=== PATIENT | female | born 1980 | race Hispanic/Latino ===

== ENCOUNTER 2018-05-05 14:15 | Emergency (ER) | payer MEDICAID ==
[2018-05-05 14:53] VITALS: RESP 18
--- NOTE | 2018-05-05 14:58 | ED PDOC ---
Arrival/HPI - General Chief Complaint: High Blood Pressure Time Seen by Provider: 05/05/18 14:16 Historian: Patient - History of Present Illness Narrative History of Present Illness (Text): 05/05/18 14:58 38yo female with pmhx of migraine headache who present with complaint of elevated BP/ states her BP was 150/100 yesterday while at her Neurologist. states her migraine resolved, but her BP is still elevated. Denies history of BP. states she have a physically challenged child and deals with that stress and other stressful events. States she have a PMD, but have not seen the Doctor for her BP. Denies headache, chest pain, SOB, focal weakness, slurred speech, nausea, vomiting, diaphoresis, any other complaint. Past Medical History - Provider Review Nursing Documentation Reviewed: Yes - Infectious Disease Hx of Infectious Diseases: None - Cardiac Hx Cardiac Disorders: No - Pulmonary Hx Respiratory Disorders: No - Neurological Hx Neurological Disorder: Yes Hx Migraine: Yes - HEENT Hx HEENT Disorder: No - Renal Hx Renal Disorder: No - Endocrine/Metabolic Hx Endocrine Disorders: No - Hematological/Oncological Hx Blood Disorders: No - Integumentary Hx Dermatological Disorder: No - Musculoskeletal/Rheumatological Hx Musculoskeletal Disorders: No - Gastrointestinal Hx Gastrointestinal Disorders: No - Genitourinary/Gynecological Hx Genitourinary Disorders: Yes Other/Comment: PCOS - Psychiatric Hx Psychophysiologic Disorder: No Hx Substance Use: No - Surgical History Hx Section: Yes Family/Social History - Physician Review Nursing Documentation Reviewed: Yes Family/Social History: Unknown Family HX Smoking Status: Current Some Days Smoker Hx Alcohol Use: Yes Frequency of alcohol use: Socially Hx Substance Use: No Allergies/Home Meds Allergies/Adverse Reactions: Allergies Penicillins Adverse Reaction (Verified 05/05/18 14:18) NAUSEA Home Medications: Home Meds Medication Instructions Recorded Confirmed Amitriptyline [Elavil] 10 mg PO HS 05/05/18 05/05/18 Chlorzoxazone 500 mg PO HS 05/05/18 05/05/18 Cyclobenzaprine [Flexeril] 5 mg PO PRN PRN 05/05/18 05/05/18 Erenumab-Aooe [Aimovig 70 mg IM Q30D 05/05/18 05/05/18 Autoinjector] Naratriptan HCl [Amerge] 2.5 mg PO PRN PRN 05/05/18 05/05/18 Norethindrone [Yee] 1 tab PO DAILY 05/05/18 05/05/18 Prochlorperazine [Compazine] 10 mg PO PRN PRN 05/05/18 05/05/18 tiZANidine [Zanaflex] 2 mg PO HS 05/05/18 05/05/18 Review of Systems - Physician Review All systems were reviewed & negative as marked: Yes - Review of Systems Constitutional: Other (Elevated BP) Eyes: Normal ENT: Normal Respiratory: Normal Cardiovascular: Normal Gastrointestinal: Normal Genitourinary Female: Normal Musculoskeletal: Normal Skin: Normal Neurological: Normal Endocrine: Normal Hemo/Lymphatic: Normal Psychiatric: Normal Physical Exam Vital Signs Reviewed: Yes Vital Signs Temp Pulse Resp BP Pulse Ox 05/05/18 14:52 98.1 F 101 H 18 149/106 H 100 05/05/18 14:23 98.1 F 107 H 16 157/111 H 98 Temperature: Afebrile Blood Pressure: Hypertensive Pulse: Regular Respiratory Rate: Normal Appearance: Positive for: Well-Appearing, Non-Toxic, Comfortable Pain Distress: None Mental Status: Positive for: Alert and Oriented X 3 - Systems Exam Head: Present: Atraumatic, Normocephalic Pupils: Present: PERRL Extroacular Muscles: Present: EOMI Conjunctiva: Present: Normal Mouth: Present: Moist Mucous Membranes Neck: Present: Normal Range of Motion Respiratory/Chest: Present: Clear to Auscultation, Good Air Exchange. No: Respiratory Distress, Accessory Muscle Use Cardiovascular: Present: Regular Rate and Rhythm, Normal S1, S2. No: Murmurs Abdomen: No: Tenderness, Distention, Peritoneal Signs Back: Present: Normal Inspection Upper Extremity: Present: Normal Inspection. No: Cyanosis, Edema Lower Extremity: Present: Normal Inspection. No: Edema Neurological: Present: GCS=15, CN II-XII Intact, Speech Normal Skin: Present: Warm, Dry, Normal Color. No: Rashes Psychiatric: Present: Alert, Oriented x 3, Normal Insight, Normal Concentration Medical Decision Making ED Course and Treatment: 05/05/18 17:42 38yo female who present with stated history. She was hemodynamically stable and neurologically intact. She denied any somatic complaint in ED EKG NSR @ 65bpm - N-stemi She was given Lisinopril 5mg and observed in ED. On re evaluation her BP was still elevated and another Lisinopril was ordered.. PT 's BP improved on re evaluation. She noted that she have appointment with her PMD tomorrow morning at 0800am and was advised to f/u with the PMD . Disposition/Present on Arrival - Present on Arrival Any Indicators Present on Arrival: No History of DVT/PE: No History of Uncontrolled Diabetes: No Urinary Catheter: No History of Decub. Ulcer: No History Surgical Site Infection Following: None - Disposition Have Diagnosis and Disposition been Completed?: Yes Diagnosis: Hypertension Disposition: HOME/ ROUTINE Disposition Time: 18:50 Patient Plan: Discharge Patient Problems: Current Active Problems Problem Status Onset Hypertension Acute Condition: FAIR Discharge Instructions (ExitCare): High Blood Pressure in Adults Additional Instructions: Follow up with your Doctor Return to ED for any new or worsening symptoms Prescriptions: Lisinopril [Zestril] 5 mg PO DAILY #10 tab Referrals: Angelita Birmingham MD [Medical Doctor] - Follow up with primary Forms: [employer] ([place]ian)
[2018-05-05 18:07] VITALS: BP 160/80; PULSE 97; TEMP 98; O2SAT 96
--- NOTE | 2018-05-05 23:22 | CARD ---
APPROVED REPORT Date of service: 05/05/2018 EKG Measurement Heart [id number] <Conclusion> Normal sinus rhythm Nonspecific T wave abnormality Abnormal ECG
== END 2018-05-05 19:07 | disposition home or self-care (01) ==
LOC: ED 14:15
DX: I10 Essential (primary) hypertension (principal)

== ENCOUNTER 2018-05-06 07:05 | Emergency (ER) | payer MEDICAID ==
[2018-05-06 07:11] VITALS: BMI 24.0
[2018-05-06 07:19] VITALS: RESP 18
[2018-05-06] MEDS ORDERED: Sodium Chloride 0.9% 500 ML IV STA (07:28)
--- NOTE | 2018-05-06 07:30 | ED PDOC ---
Arrival/HPI - General Chief Complaint: Headache Time Seen by Provider: 05/06/18 07:07 Historian: Patient - History of Present Illness Narrative History of Present Illness (Text): 05/06/18 07:29 38 year old female, whose past medical history includes migraine and PCOS, presents to the emergency department complaining of posterior headache, since last night. Patient states this symptom is similar to her previous migraines and reports associated nausea, vomiting, photophobia, and generalized numbness and tingling throughout her body. She notes she was here in the hospital last night for high blood pressure and the migraine started when she left. of note, the patient test from last night was negative. Patient states she is an occasional drinker and smoker. She denies drug use, focal weakness, fevers, chills, dizziness, chest pain, shortness of breath, dyspnea on exertion, cough, abdominal pain, diarrhea, back pain, neck pain, or any other complaint. Time/Duration: 24 hours Symptom Onset: Gradual Symptom Course: Unchanged Activities at Onset: Light Context: Home Past Medical History - Provider Review Nursing Documentation Reviewed: Yes - Infectious Disease Hx of Infectious Diseases: None - Cardiac Hx Cardiac Disorders: No - Pulmonary Hx Respiratory Disorders: No - Neurological Hx Neurological Disorder: Yes Hx Migraine: Yes - HEENT Hx HEENT Disorder: No - Renal Hx Renal Disorder: No - Endocrine/Metabolic Hx Endocrine Disorders: No - Hematological/Oncological Hx Blood Disorders: No - Integumentary Hx Dermatological Disorder: No - Musculoskeletal/Rheumatological Hx Musculoskeletal Disorders: No - Gastrointestinal Hx Gastrointestinal Disorders: No - Genitourinary/Gynecological Hx Genitourinary Disorders: Yes Other/Comment: PCOS - Psychiatric Hx Psychophysiologic Disorder: No Hx Substance Use: No - Surgical History Hx Section: Yes - Anesthesia Hx Anesthesia Reactions: No Hx Malignant Hyperthermia: No Family/Social History - Physician Review Nursing Documentation Reviewed: Yes Family/Social History: No Known Family HX Smoking Status: Current Some Days Smoker Hx Alcohol Use: Yes Frequency of alcohol use: Socially Hx Substance Use: No Allergies/Home Meds Allergies/Adverse Reactions: Allergies Penicillins Adverse Reaction (Verified 05/05/18 14:18) NAUSEA Home Medications: Home Meds Medication Instructions Recorded Confirmed Amitriptyline [Elavil] 10 mg PO HS 05/05/18 05/06/18 Erenumab-Aooe [Aimovig 70 mg IM Q30D 05/05/18 05/06/18 Autoinjector] Naratriptan HCl [Amerge] 2.5 mg PO PRN PRN 05/05/18 05/06/18 Norethindrone [Yee] 1 tab PO DAILY 05/05/18 05/06/18 Prochlorperazine [Compazine] 10 mg PO PRN PRN 05/05/18 05/06/18 tiZANidine [Zanaflex] 2 mg PO HS 05/05/18 05/06/18 Review of Systems - Physician Review All systems were reviewed & negative as marked: Yes - Review of Systems Constitutional: absent: Fatigue, Fevers Respiratory: absent: SOB, Cough Cardiovascular: absent: Chest Pain, Palpitations, Syncope Gastrointestinal: Nausea, Vomiting. absent: Abdominal Pain, Diarrhea Genitourinary Female: absent: Dysuria Musculoskeletal: absent: Back Pain, Neck Pain Neurological: Headache. absent: Dizziness, Focal Weakness, Gait Changes Physical Exam Vital Signs Reviewed: Yes Vital Signs Temp Pulse Resp BP Pulse Ox 05/06/18 07:06 98.2 F 93 H 18 162/100 H 94 L Temperature: Afebrile Blood Pressure: Hypertensive Pulse: Regular Respiratory Rate: Normal Appearance: Positive for: Well-Appearing, Non-Toxic Pain Distress: Severe Mental Status: Positive for: Alert and Oriented X 3 - Systems Exam Head: Present: Atraumatic, Normocephalic Pupils: Present: PERRL Extroacular Muscles: Present: EOMI Conjunctiva: Present: Normal Ears: Present: NORMAL TM, Normal Canal. No: Erythema, TM Bulging Mouth: Present: Moist Mucous Membranes Pharnyx: No: ERYTHEMA, EXUDATE, TONSILS ENLARGED Neck: Present: Normal Range of Motion Respiratory/Chest: Present: Clear to Auscultation, Good Air Exchange. No: Respiratory Distress, Accessory Muscle Use Cardiovascular: Present: Regular Rate and Rhythm, Normal S1, S2. No: Murmurs Abdomen: Present: Other (retching and vomiting on exam ). No: Tenderness, Distention, Peritoneal Signs, Rebound, Guarding Back: Present: Normal Inspection Upper Extremity: Present: Normal Inspection. No: Cyanosis, Edema Lower Extremity: Present: Normal Inspection. No: Edema Neurological: Present: GCS=15, CN II-XII Intact, Speech Normal, Motor Func Grossly Intact Skin: Present: Warm, Dry, Normal Color. No: Rashes Psychiatric: Present: Alert, Oriented x 3, Normal Insight, Normal Concentration Medical Decision Making ED Course and Treatment: 05/06/18 07:29 Impression: 38 year old female who presents to the emergency department complaining of a migraine. Plan: -- Head CT w/o contrast -- EKG -- Labs -- Apresoline -- IV fluids -- Toradol -- Zofran -- Reassess and disposition Prior Visits: Notes and results from previous visits were reviewed. Progress Notes: 05/06/18 08:01 EKG shows sinus tachycardia rate approximately [address] or T wave changes. 05/06/18 08:56 CT scan of the head as read by the radiologist shows no acute findings. 05/06/18 09:06 Little improvement after Toradol and Zofran and IV fluids. Will add Reglan and Imitrex. 05/06/18 10:08 Markedly improved post Reglan and Imitrex. Patient is up walking to the bathroom. She wants to go home to her son. Discharged home accompanied by her aunt. Follow-up with PMD. Follow-up in ER as needed. - Lab Interpretations I have reviewed the lab results: Yes - RAD Interpretation Narrative RAD Interpretations (Text): 05/06/18 08:[address] w/o contrast reviewed by radiologist, shows: IMPRESSION: No acute intracranial abnormality. Artificial Log Machine Operator: Radiologist - EKG Interpretation Interpreted by ED Physician: Yes Type: 12 lead EKG - Scribe Statement The provider has reviewed the documentation as recorded by the Sybil Medrano Provider Scribe Attestation: All medical record entries made by the Sybil were at my direction and personally dictated by me. I have reviewed the chart and agree that the record accurately reflects my personal performance of the history, physical exam, medical decision making, and the department course for this patient. I have also personally directed, reviewed, and agree with the discharge instructions and disposition. Disposition/Present on Arrival - Present on Arrival Any Indicators Present on Arrival: No History of DVT/PE: No History of Uncontrolled Diabetes: No Urinary Catheter: No History of Decub. Ulcer: No History Surgical Site Infection Following: None - Disposition Have Diagnosis and Disposition been Completed?: Yes Diagnosis: Migraine, Hypokalemia, Nausea & vomiting, Hypertension Disposition: HOME/ ROUTINE Disposition Time: 10:11 Patient Plan: Discharge Condition: IMPROVED Discharge Instructions (ExitCare): High Blood Pressure in Adults, Headache, Adult, Hypokalemia (DC), Migraine Headache (DC) Prescriptions: Ondansetron ODT [Zofran ODT] 4 mg PO Q6 #20 odt Referrals: Cyndie Godoy MD [Primary Care Provider] - Follow up with primary Forms: [employer] ([place]se)
[2018-05-06 07:57] LABS: BASO # 0.02 K/mm3 (0.0-2.0); BASO % 0.3 % (0.0-3.0); EOS # 0.1 (0.0-0.7); HEMOGLOBIN 13.1 g/dL (12.0-16.0); LYMPH # 2.1 (1.2-3.4); LYMPH % 30.6 % (22.0-35.0); MEAN CELL VOLUME 92.5 fl (80.0-105.0); MEAN CORPUSCULAR HEMOGLOBIN 30.5 pg (25.0-35.0); MEAN PLATELET VOLUME 9.7 fl (7.0-11.0); MONO # 0.3 (0.1-0.6); MONO % 4.8 % (1.0-6.0); RBC 4.29 10^6/uL (3.5-6.1); RED CELL DISTRIBUTION WIDTH 13.6 % (11.5-14.5); WHITE BLOOD COUNT 6.8 10^3/uL (4.5-11.0)
[2018-05-06 08:08] LABS: ALB/GLOB RATIO 1.1 (1.1-1.8); ALBUMIN 4.6 g/dL (3.0-4.8); ALT/SGPT 160 U/L (7-56); AST/SGOT 136 U/L (14-36); BLOOD UREA NITROGEN 7 mg/dL (7-21); CALCIUM 9.8 mg/dL (8.4-10.5); GFR NON-AFRICAN AMERICAN > 60
[2018-05-06] MEDS ORDERED: Potassium Chloride 40 mEq/30 ml LIQ UD PO STA (08:19)
--- NOTE | 2018-05-06 08:43 | CT ---
Date of service: 05/06/2018 PROCEDURE: CT HEAD WITHOUT CONTRAST. HISTORY: Headache COMPARISON: None available. TECHNIQUE: Axial computed tomography images were obtained through the head/brain without intravenous contrast. Radiation dose: Total exam DLP = 923.28 mGy-cm. This CT exam was performed using one or more of the following dose reduction techniques: Automated exposure control, adjustment of the mA and/or kV according to patient size, and/or use of iterative reconstruction technique. FINDINGS: HEMORRHAGE: No intracranial hemorrhage. BRAIN: Mccray-white matter differentiation is preserved. There is no mass, mass effect or abnormal extra-axial fluid collection. There is no territorial infarction. The midline sagittal structures are normal. VENTRICLES: The ventricles are normal in size, shape and configuration. CALVARIUM: There is no calvarial fracture or extracranial soft tissue swelling. PARANASAL SINUSES: Predominantly clear. MASTOID AIR CELLS: Predominantly clear. OTHER FINDINGS: None. IMPRESSION: No acute intracranial abnormality.
--- NOTE | 2018-05-06 10:46 | CARD ---
APPROVED REPORT Date of service: 05/06/2018 EKG Measurement Heart [id number] <Conclusion> Sinus tachycardia Non specific T-wave changes Abnormal ECG
[2018-05-06 10:51] VITALS: BP 149/78; PULSE 100; TEMP 98.5; O2SAT 98
== END 2018-05-06 10:15 | disposition home or self-care (01) ==
LOC: ED 07:05
DX: G43.909 Migraine, unspecified, not intractable, without status migrainosus (principal); E87.6 Hypokalemia; I10 Essential (primary) hypertension; R11.2 Nausea with vomiting, unspecified; E28.2 Polycystic ovarian syndrome
CPT/HCPCS: 70450; 80053; 81025; 83735; 85025; 93005; 96372; 96374; 96375; 99285; J0360; J1885; J2405; J2765; J3030; J7040